=== PATIENT | male | born 1950 | race Caucasian/White ===

== ENCOUNTER 2018-03-23 11:07 | Inpatient (IN) | payer MEDICARE, BC ==
[2018-03-23] MEDS ORDERED: Magnesium Hydroxide 400 MG/5 ML Susp 30 ML Cup PO PRN (14:32)
[2018-03-23] MEDS ORDERED: Polyethylene Glycol 3350 Powder 17 GM Packet PO PRN (14:32)
[2018-03-23] MEDS: Acetaminophen/HYDROcodone 325-5 MG Tab PO PRN ×2 (15:26→20:42)
[2018-03-23] MEDS: Carvedilol 25 MG Tab PO SCH (17:20)
[2018-03-23] MEDS: Simvastatin 20 MG Tab PO SCH (17:21)
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
[2018-03-24] MEDS: Acetaminophen/HYDROcodone 325-5 MG Tab PO PRN ×4 (03:45→22:04)
[2018-03-24] MEDS: Amiodarone 200 MG Tab PO SCH (08:16)
[2018-03-24] MEDS: Losartan 25 MG Tab PO SCH (08:16)
[2018-03-24] MEDS: Carvedilol 25 MG Tab PO SCH ×2 (08:16→18:18)
[2018-03-24] MEDS: Aspirin 81 MG Tab.EC PO SCH (08:17)
[2018-03-24] MEDS: Cholecalciferol (Vitamin D3) 1,000 Unit Tab PO SCH (08:17)
[2018-03-24] MEDS: Simvastatin 20 MG Tab PO SCH (18:18)
[2018-03-25] MEDS: Amiodarone 200 MG Tab PO SCH (08:28)
[2018-03-25] MEDS: Carvedilol 25 MG Tab PO SCH (08:28)
[2018-03-25] MEDS: Aspirin 81 MG Tab.EC PO SCH (08:29)
[2018-03-25] MEDS: Losartan 25 MG Tab PO SCH (08:29)
[2018-03-25] MEDS: Cholecalciferol (Vitamin D3) 1,000 Unit Tab PO SCH (08:31)
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
[2018-03-30] MEDS ORDERED: Warfarin 5 MG Tab PO SCH (16:00)
== END 2018-03-25 10:20 | disposition home or self-care (01) | DRG 948 ==
LOC: FB.MS 12:26
PROVIDERS: ADMIT Family Medicine; ATTEND Family Medicine
DX: R53.81 Other malaise (principal); S42.109D Fracture of unspecified part of scapula, unspecified shoulder, subsequent encounter for fracture with routine healing; S22.21XD Fracture of manubrium, subsequent encounter for fracture with routine healing; S22.39XD Fracture of one rib, unspecified side, subsequent encounter for fracture with routine healing; I10 Essential (primary) hypertension; I48.2 Chronic atrial fibrillation; Z79.01 Long term (current) use of anticoagulants; Z79.82 Long term (current) use of aspirin; H26.9 Unspecified cataract
CPT/HCPCS: 97110-GO; 97166-GO; A9270-GY